=== PATIENT | male | born 1975 | race Caucasian/White ===

== ENCOUNTER → 2020-06-08 | Outpatient (CLI) | payer OTHER | LOC: COL.RAD 10:50 | DX: M50.11 Cervical disc disorder with radiculopathy, high cervical region (principal) ==

== ENCOUNTER → 2020-06-23 | Outpatient (CLI) | payer OTHER | LOC: MHCPAIN 14:04 | DX: M47.812 Spondylosis without myelopathy or radiculopathy, cervical region (principal); M54.2 Cervicalgia; M25.512 Pain in left shoulder; G89.29 Other chronic pain | CPT/HCPCS: G0463 ==

== ENCOUNTER 2020-12-11 20:43 | Emergency (ER) | payer OTHER ==
[~2020-12-11] VITALS: Ht 180.3 cm; Wt 77.3 kg
[2020-12-11 21:44] VITALS: TEMP 98
[2020-12-11] MEDS ORDERED: CEPHALEXIN500 M1 PO (22:39)
[2020-12-11 22:57] VITALS: BP 132/90; PULSE 68
[2020-12-12] MEDS ORDERED: CEPHALEXIN500 M1 PO (00:09)
== END 2020-12-11 22:58 | disposition home or self-care (01) ==
LOC: COL.ER 20:43
DX: S61.211A Laceration without foreign body of left index finger without damage to nail, initial encounter (principal); W45.8XXA Other foreign body or object entering through skin, initial encounter

== ENCOUNTER → 2021-01-12 | Outpatient (CLI) | payer OTHER ==
[~2021-01-12] MED LIST: CEPHALEXIN500 M1 PO
== END ==
LOC: MHCPAIN 09:48
DX: M47.812 Spondylosis without myelopathy or radiculopathy, cervical region (principal); M54.2 Cervicalgia
CPT/HCPCS: G0463

== ENCOUNTER → 2021-02-28 | Outpatient (CLI) | payer OTHER | LOC: MHCPAIN 12:05 | DX: M47.812 Spondylosis without myelopathy or radiculopathy, cervical region (principal); M54.12 Radiculopathy, cervical region; G89.29 Other chronic pain | CPT/HCPCS: G0463; J1100; Q9967 ==

== ENCOUNTER → 2021-03-15 | Outpatient (CLI) | payer OTHER | LOC: MHCPAIN 09:11 | DX: M47.812 Spondylosis without myelopathy or radiculopathy, cervical region (principal); M54.12 Radiculopathy, cervical region; G89.29 Other chronic pain | CPT/HCPCS: G0463 ==

== ENCOUNTER → 2022-11-14 | Outpatient (CLI) | payer OTHER | LOC: MHCPAIN 10:52 | DX: M47.812 Spondylosis without myelopathy or radiculopathy, cervical region (principal); M54.2 Cervicalgia | CPT/HCPCS: G0463 ==